=== PATIENT | female | born 1965 | race African-American/Black ===

== ENCOUNTER 2016-09-21 15:37 | Inpatient (IN) | payer OTHER ==
[~2016-09-21] VITALS: Ht 172.7 cm; Wt 78.5 kg
[2016-09-21 16:11] VITALS: BP 164/114
--- NOTE | 2016-09-21 19:27 | NUR ---
Patient to bed 04.
--- NOTE | 2016-09-21 19:27 | NUR ---
51 Y/O F W/C/O PT REFERRED TO FROM PCP FOR EVALUATION OF INTRACTABLE VOMITING, CHILLS, FEVER X2 DAYS. HX DM, RENAL TRANSPLANT IN 2001. NO S/S OF DISTRESS NOTED AT THE MOMENT, ER MADE AWARE.
[2016-09-21] MEDS ORDERED: HYDROmorphone 1 MG/ML AMP IVP ONE (19:45)
[2016-09-21 20:44] LABS: BASOPHILS # (AUTO) 0.1 K/uL (0.00-0.22); BASOPHILS % (AUTO) 0.9 % (0.0-2.0); EOSINOPHILS # (AUTO) 0.2 K/uL (0-0.4); EOSINOPHILS % (AUTO) 1.2 % (0.0-4.0); HEMATOCRIT 38.4 % (36-48); HEMOGLOBIN 12.2 g/dL (12.0-16.0); LYMPHOCYTES # (AUTO) 1.7 K/uL (2.5-16.5); LYMPHOCYTES % (AUTO) 11.5 % (20.5-51.1); MEAN CORPUSCULAR HEMOGLOBIN 26 pg (27-31); MEAN CORPUSCULAR HGB CONC 32 g/dL (33-37); MEAN CORPUSCULAR VOLUME 82 fL (80-94); MONOCYTES # (AUTO) 1.3 K/uL (0.8-1.0); NEUTROPHILS # (AUTO) 11.6 K/uL (1.8-7.7); NEUTROPHILS % (AUTO) 77.4 % (42.2-75.2); PLATELET COUNT (AUTO) 250 K/uL (140-450); RED BLOOD CELL COUNT(AUTO) 4.71 MIL/uL (4.20-5.40); RED CELL DISTRIBUTION WIDTH 13.7 % (11.6-13.7)
[2016-09-21] MEDS ORDERED: NACL 0.9% 1,000 ML IV ONE (21:00)
[2016-09-21 21:03] LABS: ALBUMIN 3.1 g/dL (3.4-5.0); ANION GAP 14.9 (8-16); CALCIUM 9.3 mg/dL (8.5-10.1); CARBON DIOXIDE 25.7 mmol/L (21-32); CREATININE 1.5 mg/dL (0.6-1.3); TOTAL BILIRUBIN 0.7 mg/dL (0.0-1.0); TOTAL PROTEIN, SERUM 8.6 g/dL (6.4-8.2)
[2016-09-21 21:05] LABS: POTASSIUM 2.6 mmol/L (3.5-5.1)
[2016-09-21] MEDS ORDERED: cefTRIAXone 1,000 MG in LIDOCAINE 1% ED 2.1 ML IM ONE (21:15)
[2016-09-21] MEDS ORDERED: POTASSIUM CHLORIDE 10 MEQ TABER PO ONE ×2 (21:15)
[2016-09-21 21:22] LABS: LACTIC ACID 1.4 mmol/L (0.4-2.0)
[2016-09-21 22:23] LABS: APPEARANCE,URINE CLOUDY (CLEAR); BILIRUBIN,URINE 1+ (NEGATIVE); BLOOD, URINE 1+ (NEGATIVE); COLOR,URINE YELLOW (YELLOW); LEUKOCYTE ESTERASE ,URINE NEGATIVE (NEGATIVE); NITRITE, URINE NEGATIVE (NEGATIVE); PH,URINE 7.5 (5.0-9.0); PROTEIN,URINE 3+ (NEGATIVE); UGLUCOSE NEGATIVE (NEGATIVE); UROBILINOGEN,URINE 0.2 EU/dL (0.2 - 1)
[2016-09-21 22:37] LABS: BACTERIA,URINE 3+ /HPF (None Seen); ICTOTEST NEGATIVE (NEGATIVE); MUCUS,URINE 3+ /LPF (None Seen); WBC,URINE 30-50 /HPF (0-5)
[2016-09-21 22:38] LABS: WHITE BLOOD CELL CASTS,URINE 0-3 /LPF (None Seen)
[2016-09-21] MEDS ORDERED: ONDANSETRON 4 MG/2 ML VIAL IVP ONE (22:50)
--- NOTE | 2016-09-21 23:37 | NUR ---
PT BACK FROM CT SCAN
--- NOTE | 2016-09-22 00:52 | NUR ---
[facility]ILY [facility]ERS WILL BRING HER HOMEMEDS IN THE MORNING.
--- NOTE | 2016-09-22 01:02 | NUR ---
Patient will be admitted to care of DR YEAGER. Admited to MED SURG. Will go to room 107. Belongings list completed. Report to SUJATA STINSON.
--- NOTE | 2016-09-22 01:28 | NUR ---
PT TRASFERRED TO MED SURG VIA [facility]. PT'S WHEEL CHAIR TAKEN TO PT'S ROOM WITH BELONGINGS.
[2016-09-22 01:30] VITALS: BP 158/90
--- NOTE | 2016-09-22 01:30 | NUR ---
ADMITTED A 51F FROM ER, MED SURG PT. CAME BY [facility] WITH C/O LOWER ABDOMINAL AND BACK PAIN, FEVER,N/V X5 DAYS. BUT AT THIS TIME, NO C/O PAIN NOTED. REPOSITIONED FOR COMFORT . VITAL SIGNS TAKEN. HAS HL ON THE RT HAND. PT REFUSED TO HAVE THE ADMISSION DONE AT THIS TIME. SHE WANTS TO SLEEP AND WILL DO ADMISSION AFTER AN HOUR. WILL CONTINUE TO MONITOR.
[2016-09-22 05:19] VITALS: BP 147/88
[2016-09-22] MEDS ORDERED: ACETAMINOPHEN 325 MG TAB PO PRN (05:30)
--- NOTE | 2016-09-22 05:30 | NUR ---
PAGED DR. YEAGER FOR ADMITTING ORDERS AND PT HAVING FEVER. MADE AWARE WITH ORDERS.
[2016-09-22] MEDS ORDERED: ACETAMINOPHEN 325 MG TAB ONE (05:38)
[2016-09-22] MEDS: NACL 0.45% 1,000 ML IV SCH ×3 (06:00→19:20)
--- NOTE | 2016-09-22 06:00 | NUR ---
IV ACCESS ON THE RT HAND INFILTRATED. TRIED RT WRIST BUT ALSO INFILTRATED. WILL TRY ANOTHER SITE.
--- NOTE | 2016-09-22 06:45 | NUR ---
TEMP RECHECKED 98.3.
--- NOTE | 2016-09-22 06:53 | NUR ---
RANDOM BLOOD SUGAR WAS CHECKED RESULT 214. WILL ENDORSE TO AM NURSE
--- NOTE | 2016-09-22 07:15 | NUR ---
ENDORSED PT IN STABLE CONDITION TO AM NURSE.
--- NOTE | 2016-09-22 07:35 | NUR ---
DR. YEAGER, MANUEL OCONNOR, SEEN PT..
[2016-09-22 08:00] VITALS: BP 145/95
[2016-09-22] MEDS ORDERED: DEXTROSE 50% 50 ML SYR IVP PRN (08:05)
[2016-09-22] MEDS ORDERED: HYDROcodone/APAP 10/325 MG 1 TAB TAB PO PRN (08:05)
--- NOTE | 2016-09-22 08:38 | NUR ---
PATIENT HAS BEEN SCREENED AND CATEGORIZED MODERATE NUTRITION RISK. PATIENT WILL BE SEEN WITHIN 3-5 DAYS OF ADMISSION. 09/24/16-09/26/[address]
[2016-09-22] MEDS: predniSONE 5 MG TAB PO SCH (08:58)
[2016-09-22] MEDS: ENOXAPARIN 30 MG/0.3 ML SYR SUBQ SCH (08:59)
[2016-09-22] MEDS ORDERED: MYCOPHENOLATE 250 MG CAP PO SCH (09:00)
[2016-09-22] MEDS ORDERED: TACROLIMUS 0.5 MG CAP PO SCH (09:00)
[2016-09-22 12:00] VITALS: BP 154/98
[2016-09-22] MEDS: BLOOD GLUCOSE MONITORING 1 DEV DEV FS SCH ×3 (12:14→21:00)
[2016-09-22] MEDS: INSULIN LISPRO SLIDING SCALE 100 UNITS/ML VIAL SUBQ PRN (12:15)
--- NOTE | 2016-09-22 14:10 | NUR ---
GUIDO MCGEE CAME, CHECKED PT. CHART, AND SEEN PT..
[2016-09-22 15:26] LABS: CREATININE 1.3 mg/dL (0.6-1.3)
--- NOTE | 2016-09-22 16:15 | NUR ---
PAGED MANUEL LANDRUM REGARDING K 3.0. LEFT CALL BACK NUMBER. INFORMED CHARGE NURSE SAMANTA SANCHEZ.
[2016-09-22] MEDS ORDERED: HYDROmorphone 1 MG/ML AMP IVP PRN (17:00)
[2016-09-22] MEDS: POTASSIUM CHLORIDE 10 MEQ TABER PO SCH (17:26)
--- NOTE | 2016-09-22 19:15 | NUR ---
REPORT GIVEN TO MILAD MEYER -SUJATA. IVF INFUSING WELL. IN STABLE CONDITION.
--- NOTE | 2016-09-22 19:20 | NUR ---
RECEIVED PT IN STABLE CONDITION FROM GA NURSE. AWAKE,ALERT AND ORIENTED X4. BEDREST. MED SURG. WITH NO C/O OF ANY DISCOMFORT NOR PAIN NOTED. HAS IVF INFUSING WELL ON THE LT FA#24. CLEAR AND PATENT. PLAN OF CARE DISCUSSED AND VERBALIZED UNDERSTANDING. PT WITH LT BKA . CALL LIGHT PLACED WITHIN EASY REACH. BED ON LOW POSITION. WILL CONTINUE TO MONITOR.
[2016-09-22 20:00] VITALS: BP 143/65
[2016-09-22] MEDS ORDERED: TACROLIMUS 1 MG CAP PO SCH ×2 (21:00→21:50)
--- NOTE | 2016-09-22 21:00 | NUR ---
PT REFUSED BLOOD SUGAR CHECKED AT THIS TIME. PROVIDED WITH SOME APPLE JUICE.
[2016-09-22] MEDS: TACROLIMUS 1 MG CAP PO SCH (22:40)
[2016-09-23] MEDS: NACL 0.45% 1,000 ML IV SCH (00:08)
[2016-09-23] MEDS: POTASSIUM CHLORIDE 10 MEQ TABER PO SCH ×3 (00:08→18:05)
[2016-09-23 00:15] VITALS: BP 142/85
--- NOTE | 2016-09-23 00:30 | NUR ---
PT REFUSED K DUR 40 MED PO AND BLOOD SUGAR CHECK. PAGED DR. YEAGER. MADE HIM AWARE. NO NEW ORDER MADE.
--- NOTE | 2016-09-23 02:00 | NUR ---
SLEEPING WELL. NO S/S OF ANY DISCOMFORT NOTED. WILL CONTINUE TO MONITOR.
--- NOTE | 2016-09-23 04:00 | NUR ---
INCONTINENT. HAS BEEN CLEANED AN KEPT DRY. REPOSITIONED FOR COMFORT.
[2016-09-23 04:10] VITALS: BP 152/95
[2016-09-23] MEDS ORDERED: HYDROmorphone 1 MG/ML AMP IVP PRN (04:10)
--- NOTE | 2016-09-23 05:51 | NUR ---
K LEVEL STILL LOW 2.[address] TOY SORIA AND MADE AWARE WITH ORDERS. Addendum: 09/23/16 at 0735 by Annie Mcnamara RN WAS CALLED [phone].
--- NOTE | 2016-09-23 06:19 | NUR ---
ASLEEP. NO S/S OF ANY DISCOMFORT NOR PAIN.
[2016-09-23] MEDS: BLOOD GLUCOSE MONITORING 1 DEV DEV FS SCH ×4 (06:20→20:14)
[2016-09-23 06:26] LABS: BASOPHILS % (AUTO) 0.1 % (0.0-2.0); EOSINOPHILS # (AUTO) 0.2 K/uL (0-0.4); EOSINOPHILS % (AUTO) 1.5 % (0.0-4.0); HEMATOCRIT 32.5 % (36-48); HEMOGLOBIN 10.7 g/dL (12.0-16.0); LYMPHOCYTES # (AUTO) 1.2 K/uL (2.5-16.5); LYMPHOCYTES % (AUTO) 11.1 % (20.5-51.1); MEAN CORPUSCULAR HEMOGLOBIN 27 pg (27-31); MEAN CORPUSCULAR HGB CONC 33 g/dL (33-37); MEAN CORPUSCULAR VOLUME 81 fL (80-94); NEUTROPHILS # (AUTO) 8.8 K/uL (1.8-7.7); NEUTROPHILS % (AUTO) 78.3 % (42.2-75.2); PLATELET COUNT (AUTO) 191 K/uL (140-450); WHITE BLOOD COUNT (AUTO) 11.2 K/uL (4.8-10.8)
[2016-09-23 06:39] LABS: ANION GAP 10.6 (8-16); CALCIUM 8.8 mg/dL (8.5-10.1); CARBON DIOXIDE 28.1 mmol/L (21-32); CREATININE 1.1 mg/dL (0.6-1.3)
[2016-09-23 06:44] LABS: POTASSIUM 2.7 mmol/L (3.5-5.1)
[2016-09-23 06:54] LABS: PHOSPHORUS 2.8 mg/dL (2.5-4.9)
[2016-09-23] MEDS ORDERED: POTASSIUM CHLORIDE 10 MEQ TABER PO SCH (07:00)
--- NOTE | 2016-09-23 07:18 | NUR ---
ASSUMED CONTINUITY OF CARE. NO SIGNS AND SYMPTOMS OF ACUTE DISTRESS NOTED. INITIAL ASSESSMENT DONE. KEEP COMFORTABLE ON BED. EXPLAINED DIAGNOSIS, PLAN OF CARE, PAIN MANAGEMENT TEACHING, USE OF CALL LIGHT/BED/TV/BATHROOM. VERBALIZED UNDERSTANDING. FALL PRECAUTION APPLIED. FALL PRECAUTION APPLIED. CALL LIGHT WITHIN REACH.
--- NOTE | 2016-09-23 07:30 | NUR ---
ENDORSED PT IN STABLE CONDITION TO AM NURSE.
[2016-09-23] MEDS: POTASSIUM CHL 20 MEQ/ 1/2 NS 1,000 ML IV SCH ×2 (07:51→16:55)
[2016-09-23 08:00] VITALS: BP 147/96
--- NOTE | 2016-09-23 08:00 | NUR ---
Patient's Plan of Care was discussed and reviewed with PROOF LOAD MECHANIC: WILLY SWENSON
[2016-09-23] MEDS: TACROLIMUS 1 MG CAP PO SCH ×2 (08:51→17:11)
[2016-09-23] MEDS: predniSONE 5 MG TAB PO SCH (08:51)
[2016-09-23] MEDS: ENOXAPARIN 30 MG/0.3 ML SYR SUBQ SCH (08:52)
--- NOTE | 2016-09-23 11:45 | NUR ---
REFUSED BLOOD SUGAR CHECK. AWAKE, ALERT, AND ORIENTED X3. NO DISTRESS NOTED. INFORMED MANUEL LANDRUM WHO WAS AT [facility] NURSE STATION AT THIS TIME THAT PT. REFUSED BLOOD SUGAR CHECK. MANUEL LANDRUM STATES "IT'S OK." INFORMED CHARGE NURSE SAMANTA SANCHEZ.
[2016-09-23 12:00] VITALS: BP 152/109
--- NOTE | 2016-09-23 12:05 | NUR ---
INFORMED MANUEL LANDRUM ABOUT VS AT 1200 TEMP 98.6 TEMPORAL SCAN, BP 152/109, HR 116, RESP 18, O2 SAT 98% ON ROOM AIR. NO C/O PAIN. NO ACUTE DISTRESS NOTED.
[2016-09-23] MEDS ORDERED: amLODIPine 5 MG TAB PO SCH (12:51)
[2016-09-23] MEDS ORDERED: MAG SULF 2000 MG/WATER PREMIX 100 ML IV SCH (13:00)
--- NOTE | 2016-09-23 13:20 | NUR ---
GUIDO MCGEE CAME, INFORMED OF MANUEL LANDRUM ORDERED NORVASC 10 MG PO ONE DOSE AND WAS GIVEN TO PT. FOR BP OF 152/109. NO ADDITIONAL ORDER RECEIVED FROM GUIDO MCGEE.
[2016-09-23 16:00] VITALS: BP 147/94
[2016-09-23] MEDS: HYDROmorphone 1 MG/ML AMP IVP PRN ×2 (16:13→22:14)
[2016-09-23] MEDS: INSULIN LISPRO SLIDING SCALE 100 UNITS/ML VIAL SUBQ PRN (16:29)
[2016-09-23] MEDS ORDERED: VANCOMYCIN PER PHARMACY MC PRN (17:55)
--- NOTE | 2016-09-23 19:12 | NUR ---
BEDSIDE REPORT GIVEN TO JENNIFER SANCHEZ. IVF INFUSING WELL. IN STABLE CONDITION.
--- NOTE | 2016-09-23 19:13 | NUR ---
RECEIVED PT IN STABLE CONDITION FROM CATRACHITA AGUILERA. NO SOB, NO SIGNS OF DISTRESS. PT IS AOX4, CHAIRFAST WITH GENERALIZED WEAKNESS AN LT BKA. PT USES WHEELCHAIR. PT STATES HER PAIN IS TOLERABLE AT THIS TIME. HR TACHY, OTHER VS WNL ON ROOM AIR. IV TO LT WRIST 24G PATENT, ASYMPTOMATIC, INTACT, IVF RUNNING. SKIN IS INTACT. PLAN OF CARE DISCUSSED WITH PT. SAFETY MEASURES IN PLACE. CALL LIGHT WITHIN REACH. WILL CONTINUE TO MONITOR.
[2016-09-23 20:00] VITALS: BP 152/96
[2016-09-23] MEDS: VANCOMYCIN 1GM/DEXT 5% PREMIX 200 ML IV SCH (20:14)
--- NOTE | 2016-09-23 20:14 | NUR ---
PT REFUSED BLOOD SUGAR CHECK, DENI [place] PER MD ORDER, PT TOLERATED WELL. EDUCATED PT ON WHY WE SHOULD CHECK HER BLOOD SUGAR, PT STILL REFUSED. NO SOB, NO SIGNS FO DISTRESS. IV SITE ASYMPTOMATIC, INTACT, PATENT, IVPB RUNNING. PT STATES HER PAIN IS TOLERABLE AT THIS TIME. PLAN OF CARE DISCUSSED WITH PT. SAFETY MEASURES IN PLACE. CALL LIGHT WITHIN REACH. WILL CONTINUE TO MONITOR.
--- NOTE | 2016-09-23 22:14 | NUR ---
PT C/O BACK PAIN 03/22. HR TACHY, OTHER VS STABLE ON ROOM AIR. ALTERNATIVE MEASURES NOT EFFECTIVE, MEDICATED PT FOR PAIN PER MD ORDER. IV SITE ASYMPTOMATIC, INTACT, PATENT, IVF RUNNING. PLAN OF CARE DISCUSSED WITH PT. SAFETY MEASURES IN PLACE. CALL LIGHT WITHIN REACH. WILL CONTINUE TO MONITOR.
[2016-09-24] VITALS: BP 137/95
--- NOTE | 2016-09-24 00:10 | NUR ---
VS STABLE ON ROOM AIR. PT DENIES PAIN AT THIS TIME. NO SOB, NO SIGNS OF DISTRESS. PT USED BEDPAN, WITH VOID. ADMINISTERED DUE MED, PT TOLERATED WELL. IV SITE ASYMPTOMATIC, INTACT, PATENT, IVF RUNNING. SAFETY MEASURES IN PLACE. CALL LIGHT WITHIN REACH. WILL CONTINUE TO MONITOR.
[2016-09-24] MEDS: POTASSIUM CHLORIDE 10 MEQ TABER PO SCH (00:26)
[2016-09-24] MEDS: POTASSIUM CHL 20 MEQ/ 1/2 NS 1,000 ML IV SCH ×2 (01:38→13:11)
--- NOTE | 2016-09-24 02:33 | NUR ---
PT ASLEEP IN BED. NO SOB, NO SIGNS OF DISTRESS. IV SITE ASYMPTOMATIC, INTACT, PATENT, IVF RUNNING. SAFETY MEASURES IN PLACE. CALL LIGHT WITHIN REACH. WILL CONTINUE TO MONITOR.
[2016-09-24 04:00] VITALS: BP 149/92
--- NOTE | 2016-09-24 04:00 | NUR ---
VS STABLE ON ROOM AIR. PT DENIES PAIN AT THIS TIME. NO SOB, NO SIGNS OF DISTRESS. IV SITE ASYMPTOMATIC, INTACT, PATENT, IVF RUNNING. SAFETY MEASURES IN PLACE. CALL LIGHT WITHIN REACH. WILL CONTINUE TO MONITOR.
--- NOTE | 2016-09-24 05:40 | NUR ---
MAINTENANCE MECHANIC WILLIAM UNABLE TO DRAW PTS BLOOD. WILLIAM STATED ANOTHER MAINTENANCE MECHANIC WILL COME LATER TO TRY AGAIN.
--- NOTE | 2016-09-24 06:42 | NUR ---
PT REFUSED BLOOD SUGAR CHECK. PT DENIES PAIN AT THIS TIME. NO SOB, NO SIGNS OF DISTRESS. IV SITE ASYMPTOMATIC, INTACT, PATENT, IVF RUNNING. PLAN OF CARE DISCUSSED WITH PT. SAFETY MEASURES IN PLACE. CALL LIGHT WITHIN REACH. WILL CONTINUE TO MONITOR.
[2016-09-24] MEDS: BLOOD GLUCOSE MONITORING 1 DEV DEV FS SCH ×4 (06:46→21:31)
--- NOTE | 2016-09-24 07:21 | NUR ---
ENDORSED PT IN STABLE CONDITION TO SUJATA RASHID. ALL NEEDS HAVE BEEN MET AT THIS TIME.
--- NOTE | 2016-09-24 07:23 | NUR ---
RECEIVED REPORT FROM NIGHT RN. PT RESTING IN BED. AAOX4. NO S/S OF ACUTE DISTRESS. IV SITE PATENT AND INTACT. LEFT BKA NOTED. CALL LIGHT WITHIN REACH. SAFETY MEASURES ENSURED. WILL CONTINUE TO MONITOR.
[2016-09-24 07:58] VITALS: BP 155/94
[2016-09-24] MEDS: predniSONE 5 MG TAB PO SCH (08:27)
[2016-09-24] MEDS: amLODIPine 5 MG TAB PO SCH (08:28)
[2016-09-24] MEDS: HYDROmorphone 1 MG/ML AMP IVP PRN ×3 (08:28→21:32)
[2016-09-24] MEDS: TACROLIMUS 1 MG CAP PO SCH ×2 (08:28→17:40)
[2016-09-24] MEDS: ENOXAPARIN 30 MG/0.3 ML SYR SUBQ SCH (08:35)
[2016-09-24 08:44] LABS: EOSINOPHILS # (AUTO) 0.2 K/uL (0-0.4); LYMPHOCYTES # (AUTO) 1.1 K/uL (2.5-16.5)
[2016-09-24 08:50] LABS: BASOPHILS # (AUTO) 0.1 K/uL (0.00-0.22); BASOPHILS % (AUTO) 0.8 % (0.0-2.0); HEMATOCRIT 34.3 % (36-48); HEMOGLOBIN 11.3 g/dL (12.0-16.0); LYMPHOCYTES % (AUTO) 12.8 % (20.5-51.1); MEAN CORPUSCULAR HEMOGLOBIN 26 pg (27-31); MEAN CORPUSCULAR HGB CONC 33 g/dL (33-37); MEAN CORPUSCULAR VOLUME 81 fL (80-94); MONOCYTES # (AUTO) 0.6 K/uL (0.8-1.0); MONOCYTES % (AUTO) 6.6 % (1.7-9.3); NEUTROPHILS % (AUTO) 77.8 % (42.2-75.2); PLATELET COUNT (AUTO) 229 K/uL (140-450); RED BLOOD CELL COUNT(AUTO) 4.26 MIL/uL (4.20-5.40); RED CELL DISTRIBUTION WIDTH 13.3 % (11.6-13.7)
[2016-09-24 09:03] LABS: ANION GAP 10.8 (8-16); CARBON DIOXIDE 26.9 mmol/L (21-32); CREATININE 1.1 mg/dL (0.6-1.3)
[2016-09-24 09:05] LABS: POTASSIUM 2.7 mmol/L (3.5-5.1)
[2016-09-24 09:07] LABS: MAGNESIUM 1.7 mg/dL (1.8-2.4); PHOSPHORUS 2.7 mg/dL (2.5-4.9)
[2016-09-24] MEDS ORDERED: MAG SULF 2000 MG/WATER PREMIX 50 ML IV SCH (10:00)
--- NOTE | 2016-09-24 10:33 | NUR ---
PT SLEEPING IN BED. NO S/S OF ACUTE DISTRESS. CALL LIGHT WITHIN REACH. SAFETY MEASURES ENSURED. WILL CONTINUE TO MONITOR.
--- NOTE | 2016-09-24 11:30 | NUR ---
PT REFUSED BLOOD SUGAR CHECKS. DISCUSSED IMPORTANCE OF MONITORING BLOOD GLUCOSE. PT VERBALIZED UNDERSTANDING. BUT STILL REFUSED.
[2016-09-24 12:00] VITALS: BP 150/87
[2016-09-24] MEDS ORDERED: POTASSIUM CHLORIDE 20% 40 MEQ/15 ML UDC PO SCH (12:00)
[2016-09-24] MEDS: VANCOMYCIN 1GM/DEXT 5% PREMIX 200 ML IV SCH (13:05)
--- NOTE | 2016-09-24 13:57 | NUR ---
PT STATES SHE HAS ITCHING ALL OVER BODY. PT STATES SHE HAD ITCHING THE NIGHT BEFORE WHEN VANCO WAS RUN. IV INFUSION STOPPED. PHARMACY, DR. YEAGER AND DR. LYNCH MADE AWARE. NO S/S OF ACUTE DISTRESS. PT DENIES ANY DIFFICULTY BREATHING. CALL LIGHT WITHIN REACH. SAFETY MEASURES ENSURED. WILL CONTINUE TO MONITOR.
--- NOTE | 2016-09-24 14:40 | NUR ---
09/24/16 RD INITIAL ASSESSMENT COMPLETED PLEASE REFER TO NUTRITION ASSESSMENT UNDER CARE ACTIVITY FOR ESTIMATED NUTRITIONAL NEEDS. RD RECOMMENDATIONS: CONTINUE ON RENAL CCHO 60 GM DIET TOLERATED INCREASE PROTEIN NEEDS FOR SEPSIS. --NOTE RD WILL MONITOR RENAL LABS. 3. ENCOURAGE INCREASED PO INTAKES. 4. RD WILL F/U 3-5 DAYS; MODERATE RISK. AMANDA BRADEN, RD
[2016-09-24] MEDS ORDERED: COMMUNICATION ORDER MC SCH (14:50)
[2016-09-24] MEDS: POTASSIUM CHLORIDE 40 MEQ in NACL 0.45% 1,000 ML IV SCH (15:43)
[2016-09-24] MEDS: POTASSIUM CHLORIDE 20% 40 MEQ/15 ML UDC PO SCH ×2 (15:44→15:49)
[2016-09-24 16:00] VITALS: BP 145/88
--- NOTE | 2016-09-24 16:00 | NUR ---
PT RESTING IN BED. NO S/S OF ACUTE DISTRESS. PT DENIES PAIN. IV SITE PATENT AND INTACT. CALL LIGHT WITHIN REACH. SAFETY MEASURES ENSURED. WILL CONTINUE TO MONITOR.
--- NOTE | 2016-09-24 16:30 | NUR ---
PT REFUSED BLOOD SUGAR CHECKS. DISCUSSED IMPORTANCE OF MONITORING BLOOD GLUCOSE. PT VERBALIZED UNDERSTANDING. BUT STILL REFUSED.
--- NOTE | 2016-09-24 19:09 | NUR ---
ENDORSED PLAN OF CARE TO NIGHT RN. PT REMAINS IN STABLE CONDITION.
--- NOTE | 2016-09-24 19:25 | NUR ---
RECEIVED FROM AM RN IN BED AWAKE AND SPOUSE WITH HER. ABLE TO VERBALIZE NEEDS WELL. NO SOB. DENIES ANY PAIN AT THIS TIME. CARE PLANS FOR THE NIGHT DISCUSSED WITH THEM AND CALL LIGHT WITH IN REACH. ENCOURAGED TO CALL FOR ANY HELP SHE MIGHT NEED OR IF IN PAIN. TELEMETRY MONITORING. ON LOVENOX SQ FOR DVT PROPHYLAXIS.
[2016-09-24 20:16] VITALS: BP 150/89
[2016-09-24] MEDS: LINEZOLID 600 MG TAB PO SCH (21:32)
[2016-09-24] MEDS: INSULIN LISPRO SLIDING SCALE 100 UNITS/ML VIAL SUBQ PRN (21:35)
--- NOTE | 2016-09-24 22:37 | NUR ---
SLEEPING AT THIS TIME. MEDICATED WITH DILAUDID 0.5 MG REQUESTED IVP EARLIER. ABLE TO USE CALL LIGHT FOR HELP OR ANY PAIN SHE HAS. TELEMETRY MONITORING. NO SOB. CALL LIGHT WITH IN REACH.
[2016-09-25 00:23] VITALS: BP 146/90
--- NOTE | 2016-09-25 00:46 | NUR ---
PT. SLEEPING WELL. DENIES PAIN AT THIS TIME. VS TAKEN AND NO COMPLAINTS DONE.
--- NOTE | 2016-09-25 01:53 | NUR ---
SLEEPING AT THIS TIME STILL. TELEMETRY MONITORING. CALL LIGHT WITH IN REACH AT ALL TIMES.
[2016-09-25] MEDS: POTASSIUM CHLORIDE 40 MEQ in NACL 0.45% 1,000 ML IV SCH (02:01)
[2016-09-25] MEDS: POTASSIUM CHLORIDE 20% 40 MEQ/15 ML UDC PO SCH ×2 (03:05→04:09)
--- NOTE | 2016-09-25 03:23 | NUR ---
PT. CLEANED UP RT URINATED ACCIDENTALLY IN BED. CLEANED UP AND MADE DRY AND COMFORTABLE BY FORENSIC SCIENCE TECHNICIAN. NO COMPLAINTS DONE. WENT BACK TO SLEEP. TELEMETRY MONITORING.
[2016-09-25] MEDS: HYDROmorphone 1 MG/ML AMP IVP PRN (05:18)
[2016-09-25 05:25] VITALS: BP 154/89
[2016-09-25] MEDS: BLOOD GLUCOSE MONITORING 1 DEV DEV FS SCH ×2 (05:35→11:30)
--- NOTE | 2016-09-25 06:42 | NUR ---
PT. REQUESTED FOR BEDPAN. AWAKE AND ALERT. ORIENTED X 4. VERBALIZES WELL. TELEMETRY MONITORING.
--- NOTE | 2016-09-25 07:01 | NUR ---
RECEIVED REPORT FROM NIGHT RN. PT SLEEPING IN BED. AAOX4. NO S/S OF ACUTE DISTRESS. PT DENIES PAIN. IV SITE PATENT AND INTACT. LEFT BKA NOTED. CALL LIGHT WITHIN REACH. SAFETY MEASURES ENSURED. WILL CONTINUE TO MONITOR.
[2016-09-25 07:38] VITALS: BP 154/98
[2016-09-25] MEDS: predniSONE 5 MG TAB PO SCH (08:38)
[2016-09-25] MEDS: TACROLIMUS 1 MG CAP PO SCH (08:38)
[2016-09-25] MEDS: amLODIPine 5 MG TAB PO SCH (08:38)
[2016-09-25] MEDS: LINEZOLID 600 MG TAB PO SCH (08:38)
[2016-09-25] MEDS: ENOXAPARIN 30 MG/0.3 ML SYR SUBQ SCH (08:39)
--- NOTE | 2016-09-25 08:39 | NUR ---
PT REFUSED LOVENOX BECAUSE "IT HURTS". PT EDUCATED ON REASON FOR LOVENOX BUT STILL REFUSES.
[2016-09-25] MEDS ORDERED: CARVEDILOL 6.25 MG TAB PO SCH (09:00)
[2016-09-25 09:26] VITALS: BP 154/98
--- NOTE | 2016-09-25 10:03 | NUR ---
PT RESTING IN BED. NO S/S OF ACUTE DISTRESS. PT DENIES PAIN. CALL LIGHT WITHIN REACH. SAFETY MEASURES ENSURED. WILL CONTINUE TO MONITOR.
[2016-09-25 10:49] LABS: ANION GAP 11.5 (8-16); CALCIUM 9.3 mg/dL (8.5-10.1); CARBON DIOXIDE 25.6 mmol/L (21-32); CREATININE 1.1 mg/dL (0.6-1.3); POTASSIUM 4.1 mmol/L (3.5-5.1)
[2016-09-25 10:53] LABS: MAGNESIUM 1.9 mg/dL (1.8-2.4); PHOSPHORUS 2.6 mg/dL (2.5-4.9)
[2016-09-25] MEDS ORDERED: LINE600T PO (11:31)
[2016-09-25 12:00] VITALS: BP 154/90
--- NOTE | 2016-09-25 12:05 | NUR ---
PT CLEARED FOR DISCHARGE. DISCHARGE INSTRUCTIONS PROVIDED. PT AND VERBALIZE UNDERSTANDING. IV TAKEN OUT. TIP INTACT. NO S/S OF ACUTE DISTRESS. PT DENIES PAIN. PT REMAINS IN STABLE CONDITION.
--- NOTE | 2016-09-25 12:49 | NUR ---
PT TAKEN OFF UNIT. PT REMAINS IN STABLE CONDITION.
[2016-09-27 09:38] LABS: TACROLIMUS 5.4 ng/mL (2.0-20.0)
== END 2016-09-25 12:49 | disposition home or self-care (01) | DRG 871 ==
LOC: MED 15:37 → MTU 09-22 00:48
PROVIDERS: ADMIT Family Medicine; ATTEND Family Medicine
DX: A41.81 Sepsis due to Enterococcus (principal); N18.6 End stage renal disease; N12 Tubulo-interstitial nephritis, not specified as acute or chronic; Z94.0 Kidney transplant status; E44.1 Mild protein-calorie malnutrition; I12.0 Hypertensive chronic kidney disease with stage 5 chronic kidney disease or end stage renal disease; N17.9 Acute kidney failure, unspecified; E87.6 Hypokalemia; I70.90 Unspecified atherosclerosis; D64.9 Anemia, unspecified; E03.9 Hypothyroidism, unspecified; E11.22 Type 2 diabetes mellitus with diabetic chronic kidney disease; E11.51 Type 2 diabetes mellitus with diabetic peripheral angiopathy without gangrene; E78.5 Hyperlipidemia, unspecified; E83.42 Hypomagnesemia; H54.42 Blindness, left eye, normal vision right eye; Z80.3 Family history of malignant neoplasm of breast; Z89.512 Acquired absence of left leg below knee; Z82.49 Family history of ischemic heart disease and other diseases of the circulatory system; Z83.3 Family history of diabetes mellitus; Z79.899 Other long term (current) drug therapy; Z86.718 Personal history of other venous thrombosis and embolism; Z88.0 Allergy status to penicillin; Z90.710 Acquired absence of both cervix and uterus; Z99.2 Dependence on renal dialysis; Z88.1 Allergy status to other antibiotic agents; Z88.8 Allergy status to other drugs, medicaments and biological substances; Z68.26 Body mass index [BMI] 26.0-26.9, adult
CPT/HCPCS: 36415; 74022; 80048; 80053; 81001; 82150; 82948; 83605; 83690; 83735; 84100; 84703; 85025; 87040; 87081; 87086; 87186; 93005; 96360; 96372; 99285; C1758; J0696; J1170; J1650; J1815; J2001; J2405; J3370; J3475; J3480; J7030; J7060; J7507; J7512; J7517